=== PATIENT | male | born 1980 | race Caucasian/White ===

== ENCOUNTER 2022-11-10 09:38 | Emergency (ER) | payer MEDICAID, OTHER ==
[~2022-11-10] VITALS: Ht 175.3 cm; Wt 93.2 kg
[2022-11-10 09:51] VITALS: BP 144/93
--- NOTE | 2022-11-10 10:06 | ED Cough/URI ---
General Chief Complaint: Cough/Cold/Flu Symptoms Stated Complaint: CHEST CONGESTION Source: patient, spouse Exam Limitations: no limitations History of Present Illness Date Seen by Provider: Nov 10, 2022 Time Seen by Provider: 09:44 Initial Comments 42 yo male presenting with 2 weeks of cough, congestion, body aches, plugged ears, fever, chills, racing heart at times, wheezing. He had not gone to see anyone but was using old medicine that he had at home because he did not want to have to go to the clinic. He took amoxicillin once a day from left over prescription for 6 days without improvement. He was using an inhaler and nebulizer to point he ran out of the medicine. He took 1200 mg Ibuprofen with 3 Excedrin this am for his body aches but still feels bad. While in the shower he had blown congestion from his nose. This caused him to get more fluid and pressure in his ears and he became dizzy where he felt he might pass out. His felt that he was "drowning in congestion" and she reported she was tired of it and finally talked him in to coming to be seen. He reports he had 101 F fever this am. Initially he was not able to bring anything up with his cough but in last few days that has improved and now he can at least cough up congestion. Timing/Duration: week (2 weeks) Severity/Quality: severe, productive cough Prior Episodes/Possible Cause: no prior episodes Modifying Factors: Worse With Activity, Worse With Coughing Associated Symptoms: cough, dizziness, earache, fever/chills, headache, lightheadedness, muscle aches, nasal congestion, nasal drainage, shortness of breath, wheezing Allergies and Home Medications Allergies Coded Allergies: No Known Drug Allergies (Unverified , 11/10/22) Patient Home Medication List Home Medication List Reviewed: Yes Albuterol Sulfate (Albuterol Sulfate) 2.5 Mg/3 Ml (0.083 %) Vial.neb, 2.5 MG INH Q6H PRN for WHEEZING Prescribed by: АЛЕКСАНДР OWENS on 11/10/22 1054 Albuterol Sulfate (Proventil Hfa) 6.7 Gm Hfa.aer.ad, 2 PUFF INH Q6H PRN for SHORTNESS OF BREATH Prescribed by: АЛЕКСАНДР OWENS on 11/10/22 1054 Oseltamivir Phosphate (Oseltamivir Phosphate) 75 Mg Capsule, 75 MG PO BID Prescribed by: АЛЕКСАНДР OWENS on 11/10/22 1054 Review of Systems Review of Systems Constitutional: see HPI EENTM: see HPI Respiratory: see HPI Cardiovascular: see HPI Gastrointestinal: loss of appetite Genitourinary: no symptoms reported Musculoskeletal: see HPI Skin: No rash Psychiatric/Neurological: Headache Past Qlehdek-Cutoja-Ojwloq Hx Patient Social History Tobacco Use?: Yes Tobacco type used: Cigarettes Smoking Status: Current Everyday Smoker (no cigarettes in last few days due to his cough) Substance use?: No Alcohol Use?: No Pt feels they are or have been: No Physical Exam Vital Signs - First Documented Capillary Refill : Height: '" Weight: lbs. oz. kg; BMI Method: General Appearance: WD/WN, no apparent distress HEENT: PERRL/EOMI, TMs normal (both TMs are clear but he has some mild effusion bilaterally); No photophobia; pharyngeal erythema; No tonsillar exudate Neck: non-tender, full range of motion, supple, normal inspection Respiratory: chest non-tender, lungs clear, normal breath sounds, no respiratory distress, no accessory muscle use Cardiovascular: normal peripheral pulses, regular rate, rhythm Gastrointestinal: normal bowel sounds, non tender, soft, no pulsatile mass Extremities: normal range of motion, normal capillary refill Neurologic/Psychiatric: alert, oriented x 3 Skin: normal color, warm/dry; No rash Progress/Results/Core Measures Suspected Sepsis SIRS Temperature: Pulse: Respiratory Rate: Blood Pressure / Mean: Results/Orders Lab Results Laboratory Tests Test 11/10/22 09:45 Range/Units Influenza Type A (RT-PCR) Detected H Not Detecte Influenza Type B (RT-PCR) Not Detected Not Detecte SARS-CoV-2 RNA (RT-PCR) Not Detected Not Detecte My Orders Orders - АЛЕКСАНДР OWENS MD Covid 19 Inhouse Test (11/10/22 09:54) Chest Pa/Lat (2 View) (11/10/22 09:54) Influenza A And B By Pcr (11/10/22 09:54) Isolation Central Supply Req (11/10/22 09:54) Vital Signs/I&O 11/10/22 11/10/22 09:51 09:51 Temp 36.5 Pulse 88 Resp 18 B/P (MAP) 144/93 (110) Pulse Ox 99 O2 Delivery Room Air Room Air Capillary Refill : Progress Note #1: Progress Note Chest xray since he has had cough for 2 weeks and is a smoker so he is at risk of atypical infections. He was counseled to take medicine as prescribed and if going to take antibiotics only do that with prescription and at appropriate dosing.Swab sent to check for influenza and Covid. Progress Note #2: Progress Note Covid negative but positive for Influenza A. Chest xray does not show any acute infiltrate or effusion. Since he reports having fever this am will discuss option of Tamiflu, even though he has had symptoms for more than 48 hours so it may not do much to help him. Encourage fluids and rest and robitussin or mucinex to help with congestion. Follow up with primary care for continued concerns. Refill albuterol since he used up what he had. Counseled on symptomatic treatment. Progress Note #3: Time: 11:22 Progress Note Pharmacy called to say that they do not have Tamiflu in stock but do have Xofluza and his insurance would cover that alternative. I gave them the ok to use Xofluza 80 mg po x 1. Diagnostic Imaging Diagonstic Imaging: Xray Plain Films/CT/US/NM/MRI: chest Comments [facility] [place], [place] NAME: LIAM MALDONADO [facility] REC#: [id number] PT STATUS: REG ER : 1980 PHYSICIAN: АЛЕКСАНДР OWENS MD ADMIT DATE: 11/10/22/ER FS Signed Date of Exam:11/10/22 CHEST PA/LAT (2 VIEW) INDICATION: cough, congestion, COVID PUI. TECHNIQUE: Two view chest 10:15 AM CORRELATION STUDY: None FINDINGS: The heart size, mediastinal configuration and pulmonary vasculature are within normal limits. The lungs are clear with no consolidating infiltrate. There is no significant pleural effusion or pneumothorax. Visualized osseous structures are unremarkable. IMPRESSION: 1. Negative for acute abnormality of the chest. Dictated by: Dictated on workstation # [id number] Dict: 11/10/22 1015 Trans: 11/10/22 1022 DO [id number] Interpreted by: CHON OROSCO DO Electronically signed by: CHON OROSCO DO 11/10/22 1022 Reviewed: Reviewed by Me Departure Impression Primary Impression: Influenza A Additional Impressions: Upper respiratory infection Qualified Codes: J06.9 - Acute upper respiratory infection, unspecified Generalized body aches Disposition: 01 HOME, SELF-CARE Condition: Stable Departure-Patient Inst. Decision time for Depature: 10:49 Referrals: NATALIIA MATA APRN (PCP) Primary Care Physician [facility] (Family) Primary Care Physician Patient Instructions: Flu, Adult ED, Upper Respiratory Infection ED Add. Discharge Instructions: You should wear a mask around others while you are having fevers and coughing. Continue to drink plenty of water and electrolyte drinks to help with hydration and body aches. Try Robitussin or Mucinex to help with loosening your cough and congestion. All discharge instructions reviewed with patient and/or family. Voiced understanding. Scripts Albuterol Sulfate (Proventil Hfa) 6.7 Gm Hfa.aer.ad 2 PUFF INH Q6H PRN for SHORTNESS OF BREATH for 30 Days, #6.7 GM 1 Refill Prov: АЛЕКСАНДР OWENS MD 11/10/22 Albuterol Sulfate (Albuterol Sulfate) 2.5 Mg/3 Ml (0.083 %) Vial.neb 2.5 MG INH Q6H PRN for WHEEZING for 7 Days, #75 ML 1 Refill Prov: АЛЕКСАНДР OWENS MD 11/10/22 Oseltamivir Phosphate (Oseltamivir Phosphate) 75 Mg Capsule 75 MG PO BID for Influenza A for 5 Days, #10 CAP 0 Refills Prov: АЛЕКСАНДР OWENS MD 11/10/22 АЛЕКСАНДР OWENS MD Nov 10, 2022 10:06
--- NOTE | 2022-11-10 10:15 | Diagnostic Imaging Report ---
INDICATION: cough, congestion, COVID PUI. TECHNIQUE: Two view chest 10:15 AM CORRELATION STUDY: None FINDINGS: The heart size, mediastinal configuration and pulmonary vasculature are within normal limits. The lungs are clear with no consolidating infiltrate. There is no significant pleural effusion or pneumothorax. Visualized osseous structures are unremarkable. IMPRESSION: 1. Negative for acute abnormality of the chest. Dictated by: Dictated on workstation # [id number]
[2022-11-10] MEDS ORDERED: OSEL75CA15 PO (10:54)
[2022-11-10] MEDS ORDERED: RT-ALBUINH INH (10:54)
[2022-11-10] MEDS ORDERED: ALBU2.5V4 INH (10:54)
== END 2022-11-10 10:56 | disposition home or self-care (01) ==
LOC: ER FS 09:41
DX: J10.1 Influenza due to other identified influenza virus with other respiratory manifestations (principal); F17.210 Nicotine dependence, cigarettes, uncomplicated; Z20.822 Contact with and (suspected) exposure to COVID-19; Z28.310 Unvaccinated for COVID-19
CPT/HCPCS: 71046; 87636